=== PATIENT | male | born 1995 ===

== ENCOUNTER 2017-07-01 21:26 | Emergency (ER) | payer SELFPAY ==
--- NOTE | 2017-07-01 22:50 | EDM.PDOC ---
ED HPI GENERAL MEDICAL PROBLEM - General Chief Complaint: Back Pain or Injury Stated Complaint: [id number] YESTERDAY- BACK PAIN TROUBLE BREATHING Time Seen by Provider: 07/01/17 22:35 Source of Information: Reports: Patient - History of Present Illness INITIAL COMMENTS - FREE TEXT/NARRATIVE: c/o right lateral pain in ribs, and hurts to take deep breath. Reports falling on ice on to back last night. Has used icy hot patch and still painful Right Middle Back Pain Score (Numeric/FACES): 10 - Related Data Allergies Allergy/AdvReac Type Severity Reaction Status Date / Time No Known Allergies Allergy Verified 07/01/17 21:33 Home Meds: Home Meds . [No Known Home Meds] 07/01/17 [History] Past Medical History - Past Health History Medical/Surgical History: Denies Medical/Surgical History Social & Family History - Tobacco Use Smoking Status *Q: Current Every Day Smoker Years of Tobacco use: 2 Packs/Tins Daily: 0.3 Second Hand Smoke Exposure: Yes - Recreational Drug Use Recreational Drug Use: No ED ROS GENERAL - Review of Systems Review Of Systems: See Below Constitutional: Reports: No Symptoms HEENT: Reports: No Symptoms Respiratory: Reports: Pleuritic Chest Pain. Denies: Cough, Sputum Cardiovascular: Reports: No Symptoms Musculoskeletal: Reports: Other (right lateral ribs) ED EXAM,LOWER BACK PAIN/INJURY - Physical Exam Exam: See Below Exam Limited By: Language Barrier General Appearance: Alert, Moderate Distress (with movment) Eye Exam: Bilateral Eye: EOMI Ears: Normal External Exam Nose: Normal Inspection Throat/Mouth: Normal Inspection, Normal Teeth Head: Atraumatic, Normocephalic Neck: Normal Inspection Respiratory/Chest: Lungs Clear, Splinting, Other (minimal tenderness 5-7th rib with palpation of lateral chest). No: Rales, Rhonchi, Wheezing, Stridor GI/Abdominal: Normal Bowel Sounds, Soft Back Exam: Paraspinal Tenderness (right mid). No: CVA Tenderness (L), CVA Tenderness (R), Vertebral Tenderness Neurological: Normal Plantar Flexion Psychiatric: Anxious Skin Exam: Warm, Dry, Intact, Normal Color, Other (no bruising) Course - Vital Signs Last Recorded V/S: Last Vital Signs Temp 98.8 F 07/01/17 21:29 Pulse 111 H 07/01/17 21:29 Resp 18 07/01/17 21:29 BP 157/93 H 07/01/17 21:29 Pulse Ox 100 07/01/17 21:29 - Orders/Labs/Meds Meds: Medications Discontinued Medications Generic Name Dose Route Start Last Admin Trade Name Maricel PRN Reason Stop Dose Admin Oxycodone/Acetaminophen 1 tab 07/01/17 22:58 07/01/17 23:01 Percocet 325-5 Mg PO 07/01/17 22:59 1 tab ONETIME ONE Administration - Radiology Interpretation Free Text/Narrative:: CXR unremarkable Departure - Departure Time of Disposition: 22:49 Disposition: Home, Self-Care 01 Condition: Good Clinical Impression: Rib pain on right side - Discharge Information Instructions: Rib Contusion Referrals: PCP,Unobtain [Primary Care Provider] - Forms: ED Department Discharge Additional Instructions: encourage deep breathing at least every hour while awake tylenol or ibuprofen alternating every 4 hours as needed splint right chest if cough or sneeze follow up if pain not improving or if breathing worsens
[2017-07-01] MEDS ORDERED: Acetaminophen/oxyCODONE 325-5 MG Tab PO ONE (22:58)
== END 2017-07-01 23:03 | disposition home or self-care (01) ==
LOC: DL.ED 21:26
DX: R07.81 Pleurodynia (principal); F17.210 Nicotine dependence, cigarettes, uncomplicated; W00.0XXA Fall on same level due to ice and snow, initial encounter
CPT/HCPCS: 71101; 99283; A9270